=== PATIENT | female | born 1945 | race Hispanic/Latino ===

== ENCOUNTER → 2018-08-12 | Outpatient (CLI) | payer OTHER | END | disposition home or self-care (01) | LOC: RAH 12:45 | PROVIDERS: ATTEND Internal Medicine Cardiovascular Disease | DX: Z13.6 Encounter for screening for cardiovascular disorders (principal) | CPT/HCPCS: 75571 ==

== ENCOUNTER → 2018-08-19 | Outpatient (CLI) | payer MEDICARE | END | disposition home or self-care (01) | LOC: SHCH 12:33 | PROVIDERS: ATTEND Internal Medicine Cardiovascular Disease | DX: I08.1 Rheumatic disorders of both mitral and tricuspid valves (principal); I10 Essential (primary) hypertension | CPT/HCPCS: 93306 ==

== ENCOUNTER → 2018-09-23 | Outpatient (CLI) | payer MEDICARE ==
[~2018-09-23] MED LIST: REGADENOSON 0.4 MG/5 ML PF SYG IVP SCH
== END | disposition home or self-care (01) ==
LOC: SHCH 08:18
PROVIDERS: ATTEND Internal Medicine Cardiovascular Disease
DX: I20.9 Angina pectoris, unspecified (principal)
CPT/HCPCS: 78452; 93017; 96374; A9500 ×2; J2785

== ENCOUNTER 2019-02-07 06:31 | Emergency (ER) | payer MEDICARE ==
[2019-02-07] MEDS ORDERED: ASPIRIN 325 MG TABLET ONE (06:57)
[2019-02-07 07:23] LABS: CREATININE 0.7 mg/dL (0.5-1.5); INR 0.98 (0.85-1.15); PARTIAL THROMBOPLASTIN TIME 26.2 SEC (26.3-35.5); POTASSIUM 3.9 mmol/L (3.5-5.1); PROTHROMBIN TIME 10.3 SEC (9.6-11.6)
[2019-02-07 07:37] LABS: BILIRUBIN,TOTAL 0.4 mg/dL (0.2-1.0); THYROID STIMULATING HORMONE 5.82 uIU/mL (0.36-3.74); TOTAL PROTEIN, SERUM 7.3 g/dL (6.0-8.3)
[2019-02-07 07:48] LABS: B-TYPE NATRIURETIC PEPTIDE 127 pg/mL (0-100)
[2019-02-07 07:52] LABS: BASOPHILS % (AUTO) 2.1 % (0.0-5.0); EOSINOPHILS % (AUTO) 1.9 % (0.0-8.0); HEMATOCRIT 45.8 % (36-48); LYMPHOCYTES % (AUTO) 28.9 % (21.0-51.0); MEAN CORPUSCULAR HEMOGLOBIN 32.2 pg (27.0-33.0); MEAN CORPUSCULAR HGB CONC 33.6 g/dL (32.0-36.0); MEAN CORPUSCULAR VOLUME 95.9 fL (79-99); MONOCYTES % (AUTO) 6.1 % (3.0-13.0); NUCLEATED RED BLOOD CELLS 0.2 % (0.0-0.19); PLATELET COUNT (AUTO) 182 K/uL (130-400); RED BLOOD CELL COUNT(AUTO) 4.77 MIL/uL (4.00-5.50); RED CELL DISTRIBUTION WIDTH 13.4 % (11.0-15.5); WHITE BLOOD COUNT (AUTO) 5.9 K/uL (4.8-10.8)
[2019-02-07 07:58] LABS: MAGNESIUM 2.1 mg/dL (1.80-2.40)
== END 2019-02-07 09:44 | disposition home or self-care (01) ==
LOC: EDH 06:31
DX: R00.2 Palpitations (principal); F41.9 Anxiety disorder, unspecified; R91.1 Solitary pulmonary nodule; I10 Essential (primary) hypertension; Z90.49 Acquired absence of other specified parts of digestive tract; Z90.710 Acquired absence of both cervix and uterus
CPT/HCPCS: 36415; 71045; 80053; 82550; 83735; 83880; 84439; 84443; 84484; 85025; 85610; 85730; 93005

== ENCOUNTER → 2019-03-14 | Outpatient (CLI) | payer MEDICARE ==
[~2019-03-14] MED LIST changes: +IOHEXOL-350 50ML VIAL IV ONE; -REGADENOSON 0.4 MG/5 ML PF SYG IVP SCH
== END | disposition home or self-care (01) ==
LOC: RAH 07:08
PROVIDERS: ATTEND Family Medicine
DX: J44.9 Chronic obstructive pulmonary disease, unspecified (principal); R91.1 Solitary pulmonary nodule; I25.10 Atherosclerotic heart disease of native coronary artery without angina pectoris; N20.0 Calculus of kidney
CPT/HCPCS: 71270; Q9967

== ENCOUNTER → 2019-06-02 | Outpatient (CLI) | payer MEDICARE | END | disposition home or self-care (01) | LOC: RAH 10:40 | PROVIDERS: ATTEND Family Medicine | DX: Z12.31 Encounter for screening mammogram for malignant neoplasm of breast (principal) | CPT/HCPCS: 77067 ==

== ENCOUNTER → 2020-02-20 | Outpatient (CLI) | payer OTHER | END | disposition home or self-care (01) | LOC: RAH 13:08 | PROVIDERS: ATTEND Internal Medicine Cardiovascular Disease | DX: Z13.6 Encounter for screening for cardiovascular disorders (principal); K44.9 Diaphragmatic hernia without obstruction or gangrene | CPT/HCPCS: 75571 ==

== ENCOUNTER 2020-08-29 12:01 | Inpatient (IN) | payer MEDICARE ==
[~2020-08-29] VITALS: Ht 160 cm; Wt 61.1 kg
[2020-08-29] MEDS ORDERED: ADENOSINE 6MG VIAL IV ONE (12:02)
[2020-08-29] MEDS ORDERED: DILTIAZEM 50MG VIAL IV ONE (12:10)
[2020-08-29] MEDS ORDERED: 0.9%NACL 100ML 100 ML IV ONE (12:10)
[2020-08-29] MEDS ORDERED: DILTIAZEM 125 MG/25 ML INJ IV ONE (12:10)
[2020-08-29 12:21] LABS: BASOPHILS % (AUTO) 0.9 % (0.0-5.0); EOSINOPHILS % (AUTO) 0.7 % (0.0-8.0); HEMATOCRIT 49.7 % (36-48); LYMPHOCYTES % (AUTO) 31.9 % (21.0-51.0); MEAN CORPUSCULAR HEMOGLOBIN 31.4 pg (27.0-33.0); MEAN CORPUSCULAR VOLUME 95.2 fL (79-99); MONOCYTES % (AUTO) 5.4 % (3.0-13.0); PLATELET COUNT (AUTO) 249 K/uL (130-400); RED BLOOD CELL COUNT(AUTO) 5.22 MIL/uL (4.00-5.50); RED CELL DISTRIBUTION WIDTH 13.2 % (11.0-15.5); WHITE BLOOD COUNT (AUTO) 8.2 K/uL (4.8-10.8)
[2020-08-29 12:24] LABS: CREATININE 1.1 mg/dL (0.5-1.5); POTASSIUM 3.8 mmol/L (3.5-5.1)
[2020-08-29 12:30] LABS: INR 1.18 (0.85-1.15); PROTHROMBIN TIME 12.4 SEC (9.6-11.6)
[2020-08-29 12:31] LABS: BILIRUBIN,TOTAL 0.5 mg/dL (0.2-1.0); PARTIAL THROMBOPLASTIN TIME 25.1 SEC (26.3-35.5); PHOSPHORUS 2.8 mg/dL (2.5-4.9); TOTAL PROTEIN, SERUM 7.9 g/dL (6.0-8.3)
[2020-08-29] MEDS ORDERED: ASPIRIN 325 MG TABLET ONE (12:31)
[2020-08-29 12:44] LABS: B-TYPE NATRIURETIC PEPTIDE 261 pg/mL (0-100)
[2020-08-29] MEDS ORDERED: ACETAMINOPHEN 325 MG TAB PO PRN ×2 (14:00)
[2020-08-29] MEDS ORDERED: DILTIAZEM 125 MG/25 ML INJ 125 MG in 0.9%NACL 100ML 100 ML IV SCH (14:00)
[2020-08-29] MEDS ORDERED: ONDANSETRON 4MG INJ IV PRN (14:00)
[2020-08-29] MEDS ORDERED: ENOXAPARIN SODIUM 120 MG/0.8ML SQ ONE (16:38)
[2020-08-29] MEDS ORDERED: METOPROLOL TARTRATE 1 MG/ML 5ML VIAL IV ONE (16:38)
[2020-08-29 18:27] LABS: TROPONIN I 1.82 ng/mL (0.00-0.06)
[2020-08-29] MEDS ORDERED: ATORVASTATIN 10 MG TABLET ONE (18:38)
[2020-08-29] MEDS ORDERED: METOPROLOL TARTRATE 25 MG TAB ONE (18:39)
[2020-08-29] MEDS: FAMOTIDINE 20MG TAB PO SCH (21:00)
[2020-08-29] MEDS: FAMOTIDINE 20MG VIAL IV SCH (21:00)
[2020-08-29] MEDS ORDERED: FAMOTIDINE 20MG VIAL IV ONE (22:35)
[2020-08-30 04:00] LABS: HEMATOCRIT 46.1 % (36-48); MEAN CORPUSCULAR HEMOGLOBIN 31.4 pg (27.0-33.0); MEAN CORPUSCULAR HGB CONC 33.4 g/dL (32.0-36.0); MEAN CORPUSCULAR VOLUME 94.1 fL (79-99); RED BLOOD CELL COUNT(AUTO) 4.9 MIL/uL (4.00-5.50); RED CELL DISTRIBUTION WIDTH 13.2 % (11.0-15.5); WHITE BLOOD COUNT (AUTO) 6.9 K/uL (4.8-10.8)
[2020-08-30 04:11] LABS: HEMOGLOBIN A1C 6.1 % (4.0-6.0)
[2020-08-30 04:22] LABS: ALBUMIN 3.6 g/dL (3.5-5.0); BILIRUBIN,TOTAL 0.3 mg/dL (0.2-1.0); CREATININE 0.7 mg/dL (0.5-1.5); POTASSIUM 3.4 mmol/L (3.5-5.1); THYROID STIMULATING HORMONE 3.36 uIU/mL (0.36-3.74); TOTAL PROTEIN, SERUM 7.1 g/dL (6.0-8.3)
[2020-08-30] MEDS ORDERED: DILTIAZEM 50MG VIAL IV ONE (05:26)
[2020-08-30] MEDS ORDERED: METOPROLOL TARTRATE 50 MG TAB ONE ×2 (07:34→22:45)
[2020-08-30] MEDS ORDERED: FAMOTIDINE 20MG VIAL IV ONE ×2 (07:34→21:32)
[2020-08-30] MEDS ORDERED: ENOXAPARIN SODIUM 30 MG/0.3 ML SQ ONE (07:34)
[2020-08-30] MEDS ORDERED: ASPIRIN 81MG CHEW TAB ONE (07:34)
[2020-08-30] MEDS ORDERED: ATORVASTATIN 10 MG TABLET ONE (08:03)
[2020-08-30] MEDS: DIGOXIN 250 MCG/ML 2ML AMP IV SCH (08:15)
[2020-08-30] MEDS: ENOXAPARIN SODIUM 60 MG/0.6 ML SQ SCH ×2 (09:00→21:00)
[2020-08-30] MEDS: ATORVASTATIN 10 MG TABLET PO SCH (09:00)
[2020-08-30] MEDS ORDERED: ENOXAPARIN SODIUM 30 MG/0.3 ML SQ SCH (09:00)
[2020-08-30] MEDS: ASPIRIN 81MG CHEW TAB PO SCH (09:00)
[2020-08-30] MEDS: METOPROLOL TARTRATE 50 MG TAB PO SCH ×2 (09:00→21:00)
[2020-08-30] MEDS ORDERED: DILTIAZEM 125 MG/25 ML INJ IV ONE (09:41)
[2020-08-30] MEDS ORDERED: 0.9%NACL 100ML 100 ML IV ONE (09:41)
[2020-08-30] MEDS: 0.9%NACL 1000ML 1,000 ML IV SCH (10:00)
[2020-08-30] MEDS: FAMOTIDINE 20MG VIAL IV SCH (21:00)
[2020-08-30] MEDS: FAMOTIDINE 20MG TAB PO SCH (21:00)
[2020-08-31] MEDS: 0.9%NACL 1000ML 1,000 ML IV SCH ×2 (06:00→21:05)
[2020-08-31] MEDS: DIGOXIN 250 MCG/ML 2ML AMP IV SCH (08:15)
[2020-08-31 08:36] LABS: BASOPHILS % (AUTO) 1.1 % (0.0-5.0); EOSINOPHILS % (AUTO) 2.8 % (0.0-8.0); HEMATOCRIT 42.9 % (36-48); LYMPHOCYTES % (AUTO) 33.8 % (21.0-51.0); MEAN CORPUSCULAR HEMOGLOBIN 30.8 pg (27.0-33.0); MEAN CORPUSCULAR HGB CONC 32.6 g/dL (32.0-36.0); MEAN CORPUSCULAR VOLUME 94.5 fL (79-99); MONOCYTES % (AUTO) 7.9 % (3.0-13.0); NEUTROPHILS % (AUTO) 54.2 % (40.0-77.0); PLATELET COUNT (AUTO) 202 K/uL (130-400); RED BLOOD CELL COUNT(AUTO) 4.54 MIL/uL (4.00-5.50); WHITE BLOOD COUNT (AUTO) 4.7 K/uL (4.8-10.8)
[2020-08-31 08:56] LABS: CREATININE 0.8 mg/dL (0.5-1.5); POTASSIUM 3.4 mmol/L (3.5-5.1)
[2020-08-31 09:00] LABS: ALBUMIN 3.3 g/dL (3.5-5.0); BILIRUBIN,TOTAL 0.5 mg/dL (0.2-1.0); TOTAL PROTEIN, SERUM 6.7 g/dL (6.0-8.3)
[2020-08-31] MEDS: METOPROLOL TARTRATE 50 MG TAB PO SCH ×3 (09:00→23:45)
[2020-08-31] MEDS: ASPIRIN 81MG CHEW TAB PO SCH (09:00)
[2020-08-31] MEDS: ATORVASTATIN 10 MG TABLET PO SCH (09:00)
[2020-08-31] MEDS: ENOXAPARIN SODIUM 60 MG/0.6 ML SQ SCH ×2 (09:00→21:00)
[2020-08-31] MEDS ORDERED: SERT-439 PO (10:36)
[2020-08-31] MEDS ORDERED: AMLO5TAB4 PO (10:36)
[2020-08-31] MEDS ORDERED: TELM40 PO (10:36)
[2020-08-31] MEDS ORDERED: FENO160T16 PO (10:36)
[2020-08-31] MEDS ORDERED: ATOR10TA69 PO (10:36)
[2020-08-31] MEDS ORDERED: POTA-79 PO (10:36)
[2020-08-31] MEDS ORDERED: ATEN50TA PO (10:36)
[2020-08-31] MEDS ORDERED: OMEP40CA21 PO (10:38)
[2020-08-31] MEDS ORDERED: ASPI-1012 PO (10:38)
[2020-08-31] MEDS ORDERED: AZIT250T9 PO (10:43)
[2020-08-31] MEDS ORDERED: MECL-160 PO (10:43)
[2020-08-31] MEDS ORDERED: LEVO88CA4 PO (10:43)
[2020-08-31] MEDS ORDERED: ENOXAPARIN SODIUM 60 MG/0.6 ML SQ ONE (15:03)
[2020-08-31] MEDS ORDERED: ASPIRIN 81MG CHEW TAB ONE (15:03)
[2020-08-31] MEDS ORDERED: METOPROLOL TARTRATE 50 MG TAB ONE (15:04)
[2020-08-31] MEDS ORDERED: ATORVASTATIN 10 MG TABLET ONE (15:04)
[2020-08-31] MEDS ORDERED: DIGOXIN 250 MCG/ML 2ML AMP ONE (15:08)
[2020-08-31 19:32] VITALS: BP 153/77
[2020-08-31] MEDS: FAMOTIDINE 20MG VIAL IV SCH (21:00)
[2020-08-31] MEDS: FAMOTIDINE 20MG TAB PO SCH (23:47)
[2020-09-01] VITALS (7 sets, daily range): BP systolic 148–164; BP diastolic 64–87
[2020-09-01] MEDS: 0.9%NACL 1000ML 1,000 ML IV SCH ×2 (01:46→21:14)
[2020-09-01] MEDS: METOPROLOL TARTRATE 1 MG/ML 5ML VIAL IV PRN ×2 (03:51→03:58)
[2020-09-01 05:11] LABS: EOSINOPHILS % (AUTO) 4.1 % (0.0-8.0); HEMATOCRIT 42.1 % (36-48); LYMPHOCYTES % (AUTO) 41.1 % (21.0-51.0); MEAN CORPUSCULAR HEMOGLOBIN 31.5 pg (27.0-33.0); MEAN CORPUSCULAR HGB CONC 33.5 g/dL (32.0-36.0); MONOCYTES % (AUTO) 7.1 % (3.0-13.0); NEUTROPHILS % (AUTO) 46.7 % (40.0-77.0); PLATELET COUNT (AUTO) 206 K/uL (130-400); RED BLOOD CELL COUNT(AUTO) 4.48 MIL/uL (4.00-5.50); RED CELL DISTRIBUTION WIDTH 12.4 % (11.0-15.5); WHITE BLOOD COUNT (AUTO) 5.1 K/uL (4.8-10.8)
[2020-09-01 05:42] LABS: ALBUMIN 3.3 g/dL (3.5-5.0); BILIRUBIN,TOTAL 0.6 mg/dL (0.2-1.0); CREATININE 0.7 mg/dL (0.5-1.5); TOTAL PROTEIN, SERUM 6.7 g/dL (6.0-8.3)
[2020-09-01 05:55] LABS: POTASSIUM 2.9 mmol/L (3.5-5.1)
[2020-09-01] MEDS: ATORVASTATIN 10 MG TABLET PO SCH (09:11)
[2020-09-01] MEDS: ASPIRIN 81MG CHEW TAB PO SCH (09:11)
[2020-09-01] MEDS: ENOXAPARIN SODIUM 60 MG/0.6 ML SQ SCH ×2 (09:12→21:13)
[2020-09-01] MEDS: METOPROLOL TARTRATE 50 MG TAB PO SCH ×2 (09:12→21:13)
[2020-09-01] MEDS: DIGOXIN 250 MCG/ML 2ML AMP IV SCH (09:14)
[2020-09-01] MEDS ORDERED: LIDOCAINE HCL-MPF 1% 2ML VIAL IV PRN (09:30)
[2020-09-01] MEDS ORDERED: POTASSIUM CHLORIDE 10MEQ/100ML 100 ML IV PRN (09:30)
[2020-09-01] MEDS ORDERED: POTASSIUM CHLORIDE 10% ELIXIR 20 MEQ/15 ML UDCUP PO PRN (09:30)
[2020-09-01] MEDS: FAMOTIDINE 20MG TAB PO SCH (21:13)
[2020-09-02] VITALS (12 sets, daily range): BP systolic 113–144; BP diastolic 53–77
[2020-09-02 05:26] LABS: BASOPHILS % (AUTO) 0.9 % (0.0-5.0); EOSINOPHILS % (AUTO) 5.6 % (0.0-8.0); HEMATOCRIT 38.7 % (36-48); LYMPHOCYTES % (AUTO) 39.5 % (21.0-51.0); MEAN CORPUSCULAR HEMOGLOBIN 30.6 pg (27.0-33.0); MEAN CORPUSCULAR HGB CONC 32.8 g/dL (32.0-36.0); MEAN CORPUSCULAR VOLUME 93.3 fL (79-99); MONOCYTES % (AUTO) 8.7 % (3.0-13.0); NEUTROPHILS % (AUTO) 45.1 % (40.0-77.0); PLATELET COUNT (AUTO) 197 K/uL (130-400); RED BLOOD CELL COUNT(AUTO) 4.15 MIL/uL (4.00-5.50); RED CELL DISTRIBUTION WIDTH 12.4 % (11.0-15.5); WHITE BLOOD COUNT (AUTO) 4.6 K/uL (4.8-10.8)
[2020-09-02 06:00] LABS: ALBUMIN 3.1 g/dL (3.5-5.0); BILIRUBIN,TOTAL 0.6 mg/dL (0.2-1.0); CREATININE 0.7 mg/dL (0.5-1.5); POTASSIUM 3.1 mmol/L (3.5-5.1); TOTAL PROTEIN, SERUM 6.4 g/dL (6.0-8.3)
[2020-09-02] MEDS: KCL 20 MEQ ERTAB PO PRN (06:16)
[2020-09-02] MEDS: ASPIRIN 81MG CHEW TAB PO SCH (09:00)
[2020-09-02] MEDS: METOPROLOL TARTRATE 50 MG TAB PO SCH ×2 (09:00→21:00)
[2020-09-02] MEDS: ATORVASTATIN 10 MG TABLET PO SCH (09:00)
[2020-09-02 09:28] LABS: INR 1.19 (0.85-1.15); PROTHROMBIN TIME 12.5 SEC (9.6-11.6)
[2020-09-02] MEDS ORDERED: MIDAZOLAM HCL 1 MG/ML 2ML VIAL ONE (10:04)
[2020-09-02] MEDS ORDERED: NITROGLYCERIN 2 MG VIAL IV ONE (10:04)
[2020-09-02] MEDS ORDERED: IOHEXOL 350 MG/ML 100ML INFUS..BTL IV ONE (10:04)
[2020-09-02] MEDS ORDERED: MEPERIDINE-PF 25 MG/ML SYG ONE (10:04)
[2020-09-02] MEDS ORDERED: IOHEXOL-350 50ML VIAL IV ONE (10:04)
[2020-09-02] MEDS ORDERED: SODIUM BICARB 50MEQ 50ML VIAL 50 ML ONE (10:04)
[2020-09-02] MEDS ORDERED: HEPARIN 10,000 UNIT/10ML (1,000 UNIT/ML) VIAL ONE (10:04)
[2020-09-02] MEDS ORDERED: LIDOCAINE HCL 400MG/20ML VIAL ONE (10:05)
[2020-09-02] MEDS ORDERED: LABETALOL 20MG VIAL IV ONE (10:47)
[2020-09-02] MEDS ORDERED: DIGOXIN 250 MCG/ML 2ML AMP ONE (11:02)
[2020-09-02] MEDS ORDERED: DILTIAZEM 25MG INJ IVP ONE ×2 (11:07→11:08)
[2020-09-02] MEDS ORDERED: PHARMACY COMMUNICATION MISC SCH (11:30)
[2020-09-02] MEDS: 0.9%NACL 1000ML 1,000 ML IV SCH ×4 (11:30→21:46)
[2020-09-02] MEDS: DIGOXIN 250 MCG/ML 2ML AMP IV SCH (11:53)
[2020-09-02] MEDS: ENOXAPARIN SODIUM 60 MG/0.6 ML SQ SCH ×2 (11:55→21:48)
[2020-09-02] MEDS: FAMOTIDINE 20MG TAB PO SCH (21:46)
[2020-09-03] MEDS: 0.9%NACL 1000ML 1,000 ML IV SCH ×4 (00:50→16:33)
[2020-09-03 04:11] VITALS: BP 144/56
[2020-09-03 05:28] LABS: BASOPHILS % (AUTO) 0.6 % (0.0-5.0); EOSINOPHILS % (AUTO) 5.3 % (0.0-8.0); HEMATOCRIT 38.1 % (36-48); LYMPHOCYTES % (AUTO) 36.6 % (21.0-51.0); MEAN CORPUSCULAR HEMOGLOBIN 31.4 pg (27.0-33.0); MEAN CORPUSCULAR HGB CONC 33.3 g/dL (32.0-36.0); MEAN CORPUSCULAR VOLUME 94.3 fL (79-99); MONOCYTES % (AUTO) 6.8 % (3.0-13.0); NEUTROPHILS % (AUTO) 50.5 % (40.0-77.0); PLATELET COUNT (AUTO) 175 K/uL (130-400); RED BLOOD CELL COUNT(AUTO) 4.04 MIL/uL (4.00-5.50); RED CELL DISTRIBUTION WIDTH 12.4 % (11.0-15.5); WHITE BLOOD COUNT (AUTO) 5.3 K/uL (4.8-10.8)
[2020-09-03 05:41] LABS: BILIRUBIN,TOTAL 0.2 mg/dL (0.2-1.0); CREATININE 0.6 mg/dL (0.5-1.5); POTASSIUM 3.3 mmol/L (3.5-5.1); TOTAL PROTEIN, SERUM 6.2 g/dL (6.0-8.3)
[2020-09-03] MEDS: KCL 20 MEQ ERTAB PO PRN ×2 (06:10→10:39)
[2020-09-03] MEDS: DIGOXIN 250 MCG/ML 2ML AMP IV SCH (08:15)
[2020-09-03 08:39] VITALS: BP 157/79
[2020-09-03] MEDS ORDERED: APIX5TAB PO (09:56)
[2020-09-03] MEDS ORDERED: DRONEDARONE HYDROCHLORIDE 400 MG TABLET PO SCH (10:30)
[2020-09-03] MEDS: ATORVASTATIN 10 MG TABLET PO SCH (10:38)
[2020-09-03] MEDS: ASPIRIN 81MG CHEW TAB PO SCH (10:38)
[2020-09-03 12:06] VITALS: BP 169/77
[2020-09-03] MEDS ORDERED: ASPI-449 PO (13:19)
[2020-09-03] MEDS ORDERED: METO25TA6 PO (13:19)
[2020-09-03] MEDS ORDERED: DRON400T7 PO (13:19)
[2020-09-03 16:31] VITALS: BP 172/83
[2020-09-03 17:45] VITALS: BP 160/80
[2020-09-03] MEDS ORDERED: APIXABAN 5 MG TABLET PO ONE (18:45)
[2020-09-03] MEDS ORDERED: METOPROLOL TARTRATE 25 MG TAB ONE (18:49)
[2020-09-03] MEDS ORDERED: METOPROLOL TARTRATE 50 MG TAB PO SCH (21:00)
[2020-09-03] MEDS ORDERED: APIXABAN 5 MG TABLET PO SCH (21:00)
== END 2020-09-03 19:30 | disposition home or self-care (01) | DRG 280 ==
LOC: EDH 12:01 → OBSVTOIN 13:49 → INTOOBSV 13:49 → EDHIP 13:49 → 4DH 08-31 17:31
PROVIDERS: ADMIT Hospitalist; ATTEND Hospitalist
PROC: B2111ZZ Fluoroscopy of Multiple Coronary Arteries using Low Osmolar Contrast (ICD-10-PCS; principal; 2020-09-02)
PROC: B2151ZZ Fluoroscopy of Left Heart using Low Osmolar Contrast (ICD-10-PCS; 2020-09-02)
PROC: 4A023N7 Measurement of Cardiac Sampling and Pressure, Left Heart, Percutaneous Approach (ICD-10-PCS; 2020-09-02)
DX: I11.0 Hypertensive heart disease with heart failure (principal); I21.A1 Myocardial infarction type 2; I50.31 Acute diastolic (congestive) heart failure; I48.19 Other persistent atrial fibrillation; D68.59 Other primary thrombophilia; E03.9 Hypothyroidism, unspecified; E78.5 Hyperlipidemia, unspecified; E78.1 Pure hyperglyceridemia; I25.10 Atherosclerotic heart disease of native coronary artery without angina pectoris; I77.810 Thoracic aortic ectasia; Z20.822 Contact with and (suspected) exposure to COVID-19; Z79.82 Long term (current) use of aspirin; Z79.899 Other long term (current) drug therapy; Z90.710 Acquired absence of both cervix and uterus; Z90.49 Acquired absence of other specified parts of digestive tract; Z88.1 Allergy status to other antibiotic agents
CPT/HCPCS: 36415; 71045; 80053; 82550; 83036; 83735; 83874; 83880; 84100; 84132; 84443; 84484; 85025; 85027; 85610; 85730; 87426; 93005; 93306; 93356; 93458; 99156; 99157; C1760; C1894; G0378; J0153; J1160; J1644; J1650; J2175; J2250; J3490; J7030; Q9967; U0003

== ENCOUNTER → 2022-08-28 | Outpatient (CLI) | payer MEDICARE ==
[~2022-08-28] MED LIST changes: +AMLO5TAB4 PO; +APIX5TAB PO; +ASPI-449 PO; +ATOR10TA69 PO; +AZIT250T9 PO; +DRON400T7 PO; +FENO160T16 PO; -IOHEXOL-350 50ML VIAL IV ONE; +LEVO88CA4 PO; +MECL-160 PO; +METO25TA6 PO; +OMEP40CA21 PO; +POTA-79 PO; +SERT-439 PO; +TELM40 PO
[2022-08-28 12:35] LABS: BASOPHILS % (AUTO) 0.9 % (0.0-5.0); EOSINOPHILS % (AUTO) 2.6 % (0.0-8.0); HEMATOCRIT 43.9 % (36-48); LYMPHOCYTES % (AUTO) 30.5 % (21.0-51.0); MEAN CORPUSCULAR HEMOGLOBIN 31.6 pg (27.0-33.0); MEAN CORPUSCULAR HGB CONC 32.8 g/dL (32.0-36.0); MEAN CORPUSCULAR VOLUME 96.3 fL (79-99); MONOCYTES % (AUTO) 7.4 % (3.0-13.0); NEUTROPHILS % (AUTO) 58.4 % (40.0-77.0); PLATELET COUNT (AUTO) 216 K/uL (130-400); RED BLOOD CELL COUNT(AUTO) 4.56 MIL/uL (4.00-5.50); RED CELL DISTRIBUTION WIDTH 14.6 % (11.0-15.5); WHITE BLOOD COUNT (AUTO) 5.4 K/uL (4.8-10.8)
[2022-08-28 13:24] LABS: ALBUMIN 3.7 g/dL (3.5-5.0); POTASSIUM 4.1 mmol/L (3.5-5.1); TOTAL PROTEIN, SERUM 7.4 g/dL (6.0-8.3)
== END | disposition home or self-care (01) ==
LOC: LAB 10:00
PROVIDERS: ATTEND Internal Medicine Cardiovascular Disease
DX: I10 Essential (primary) hypertension (principal)
CPT/HCPCS: 36415; 80053; 80061; 85025

== ENCOUNTER → 2022-11-09 | Outpatient (CLI) | payer MEDICARE ==
[2022-11-09 16:16] LABS: POTASSIUM 3.7 mmol/L (3.5-5.1)
== END | disposition home or self-care (01) ==
LOC: LAB 08:27
PROVIDERS: ATTEND Physician Assistant
DX: I10 Essential (primary) hypertension (principal)
CPT/HCPCS: 36415; 80048

== ENCOUNTER → 2024-08-03 | Outpatient (CLI) | payer OTHER, MEDICARE ==
[~2024-08-03] MED LIST changes: -MECL-160 PO; +MECL-302 PO; +POTA-364 PO; -POTA-79 PO
[2024-08-03 12:15] LABS: BASOPHILS # (AUTO) 0.06 K/uL (0.00-0.20); BASOPHILS % (AUTO) 0.7 % (0.0-5.0); EOSINOPHILS # (AUTO) 0.12 K/uL (0.00-0.70); EOSINOPHILS % (AUTO) 1.4 % (0.0-8.0); HEMATOCRIT 51.2 % (36-48); IMMATURE GRANULOCYTE ABSOLUTE 0.02 K/uL (0-1); LYMPHOCYTES # (AUTO) 2.1 K/uL (1.0-4.8); LYMPHOCYTES % (AUTO) 24.4 % (21.0-51.0); MEAN CORPUSCULAR HEMOGLOBIN 32.7 pg (27.0-33.0); MONOCYTES # (AUTO) 0.7 K/uL (0.1-1.0); MONOCYTES % (AUTO) 7.9 % (3.0-13.0); NEUTROPHILS # (AUTO) 5.7 K/uL (1.8-7.7); NEUTROPHILS % (AUTO) 65.4 % (40.0-77.0); PLATELET COUNT (AUTO) 185 K/uL (130-400); RED BLOOD CELL COUNT(AUTO) 5.17 MIL/uL (4.00-5.50); RED CELL DISTRIBUTION WIDTH 12.8 % (11.0-15.5); WHITE BLOOD COUNT (AUTO) 8.7 K/uL (4.8-10.8)
[2024-08-03 12:27] LABS: BILIRUBIN,TOTAL 0.5 mg/dL (0.2-1.0); CREATININE 1.1 mg/dL (0.5-1.0); POTASSIUM 3.6 mmol/L (3.5-5.1); TOTAL PROTEIN, SERUM 7.6 g/dL (6.0-8.3)
== END | disposition home or self-care (01) ==
LOC: LAB 09:49
PROVIDERS: ATTEND Physician Assistant
DX: I10 Essential (primary) hypertension (principal); E78.5 Hyperlipidemia, unspecified
CPT/HCPCS: 36415; 80053; 80061; 85025

== ENCOUNTER → 2024-11-14 | Outpatient (CLI) | payer OTHER, MEDICARE ==
[2024-11-14 12:29] LABS: ALBUMIN 3.6 g/dL (3.5-5.0); BILIRUBIN,TOTAL 0.5 mg/dL (0.2-1.0); CREATININE 0.8 mg/dL (0.5-1.0); POTASSIUM 4.2 mmol/L (3.5-5.1); TOTAL PROTEIN, SERUM 7.8 g/dL (6.0-8.3)
== END | disposition home or self-care (01) ==
LOC: LAB 09:45
PROVIDERS: ATTEND Internal Medicine Cardiovascular Disease
DX: I10 Essential (primary) hypertension (principal); I48.0 Paroxysmal atrial fibrillation
CPT/HCPCS: 36415; 80053